=== PATIENT | female | born 1960 | race Caucasian/White ===

== ENCOUNTER 2017-03-23 09:22 | Emergency (ER) | payer MEDICARE ==
[2017-03-23 09:49] VITALS: BP 98/59; PULSE 52; RESP 16; O2SAT 100
--- NOTE | 2017-03-23 10:06 | ED.REPORT ---
HPI-General Illness Date of Service March 23, 2017 ED Provider: Dr. Allan 56 y/o female with a hx of autism presents to the ED with her driller machine due to both feet turning dark red/purple in color. As per the driller machine at the pt's adult family home, the pt has had these sx intermittently for several years. However, given her family hx of diabetes, the pt's family were concerned and wanted her to go to the ED. The pt has been soaking her feet and reports they turn white when warm. The pt reports no pain and denies any difficulty walking. The pt's driller machine also reports that her family is concerned about the eczema on her arms. Nursing Notes Stated Complaint: DRY/RED FEET Chief Complaint: Extremity Trauma Nursing Notes Reviewed: Yes Allergies: Coded Allergies: No Known Allergies (Unverified , 03/23/17) Scheduled Ascorbic Acid (Vitamin C) 1,000 Mg Tab.chew 1,000 MG PO DAILY Levothyroxine (Levothyroxine) 75 Mcg Tablet 75 MCG PO DAILY hydrOXYzine Hcl (HydrOXYzine Hcl) 25 Mg Tablet 25 MG PO HS General Time Seen by MD: 10:05 Chief Complaint Other (Both feet red/purple in color) Hx Obtained From: Patient, Dining Service Worker Arrived By: Walk-in Sudden in Onset?: No Onset Occurred: More than a week ago... (>6 months) Symptom Duration: Since onset Severity: Current: No pain currently Severity: Maximum: No pain Recent Healthcare: No recent doctor visit Similar Sx Previous: Yes Past Medical History Past Medical History Autism Past Surgical History none reported Smoking History Unknown if Ever Smoker Ambulatory Status Independent Review of Systems Reports: Both feet are red/blue. Full Review of Systems Musculoskeletal: Denies: Extremity pain, Extremity swelling Complete sys rev & neg: except as marked. Physical Exam Vital Signs Vital Signs Date Time Temp Pulse Resp B/P Pulse Ox O2 Delivery O2 Flow Rate FiO2 03/23/17 10:55 36.3 52 16 98/59 100 Room Air 03/23/17 09:49 36.3 52 16 98/59 100 Room Air Initial VS: Reviewed Head / Eyes: Atraumatic, Normocephalic Neck: Supple, Full range of motion Respiratory: Breath sounds normal, Clear to auscultation, No respiratory distress Cardiovascular: Regular rate & rhythm, Heart sounds normal, Intact distal pulses Abdomen / GI: Soft, Non-tender, No guarding, No rebound, No distention Neurologic: Alert, Oriented, Nonfocal General/Constitutional: Awake, Alert, No acute distress, Well appearing, Cooperative, Not toxic appearing Cardiovascular: Heart rate NL, Regular rhythm, Heart sounds NL, No gallop, No murmurs, No rubs, Cap refill not delayed Cap refill in both feet is 3 seconds Upper Extremities Upper Extremity / MS: Atraumatic, Full range of motion, No swelling, Non-tender , No deformity, Neurologic intact, Vascular intact Diffuse excoriated rash like eczema on both arms. Lower Extremity / Pelvis / MS: Atraumatic, Full range of motion, No swelling, No deformity, Neurologic intact, Vascular intact Ankle / Foot: Atraumatic, Full range of motion, No swelling, No deformity, Neurologic intact, Vascular intact Fingers and toes of both feet are dark red/purple. Normal pulses No pain with range of motion Re-Eval/Medical Decision Med Decision/Clinical Course Overall concern was for occult diabetes in the setting of symptoms other than present for several years. Her fasting glucose is actually even on the low side. She is acting normal. I suspect that her extremity discoloration is related to right nonsmoker phenomenon. She will be discharged. She reportedly has a follow-up appointment in 48 hours anyway. Time of Eval: 10:19 Re-Evaluation/Progress Note: Rechecked pt. Discussed diagnosis. Informed the pt and her driller machine of the plan to discharge. Pt and her driller machine understand and agree with plan. F/U instructions and RTER warning given. All questions addressed. Counseled Regarding: Diagnosis, Lab results, Need for follow-up, When/why to return to ED Discharge & Departure Primary Impression: Normal blood glucose level Disposition: Home Discharge Condition All VS Reviewed: Yes Condition: Stable Additional Instructions: The fasting blood glucose was 65. There is no evidence of diabetes. Follow-up as planned with the primary care doctor in the next few days. Return to the ER as needed for concerning symptoms. Referrals: Linda Black PA-C (PCP) Scribe Attestation Portions of this note were transcribed by Beata Rader. I, , personally performed the history, physical exam and medical decision-making;I reviewed and confirmed the accuracy of the information in the transcribed note. Signed by Yaneth Hurley. 03/23/17 10:51 copies to: Linda Black PA-C, Timothy S DO March 23, 2017 10:06 Beata Rader March 23, 2017 10:43
[2017-03-23] MEDS ORDERED: LEVO75TA4 PO (10:10)
[2017-03-23] MEDS ORDERED: HYDR-656 PO (10:10)
[2017-03-23] MEDS ORDERED: ASCO100089 PO (10:10)
[2017-03-23 10:55] VITALS: BP 98/59; PULSE 52; RESP 16; O2SAT 100
== END 2017-03-23 11:00 | disposition home or self-care (01) ==
LOC: SED 09:22
DX: R23.0 Cyanosis (principal); F84.0 Autistic disorder; Z13.1 Encounter for screening for diabetes mellitus